=== PATIENT | male | born 1955 | race Caucasian/White ===

== ENCOUNTER 2022-04-23 19:31 | Emergency (ER) | payer OTHER ==
[~2022-04-23] VITALS: Ht 182.9 cm; Wt 84.1 kg
[2022-04-23 20:01] LABS: BASOPHILS # (AUTO) 0.2 X10'3 (0-0.2); EOSINOPHILS # (AUTO) 0.1 X10'3 (0-0.9)
[2022-04-23 20:03] LABS: BASOPHILS % (AUTO) 0.6 % (0-1); EOSINOPHILS % (AUTO) 0.3 % (0-6); HEMATOCRIT 37.8 % (42.0-52.0); HEMOGLOBIN 11.4 g/dl (14.0-17.9); LYMPHOCYTES # (AUTO) 1.4 X10'3 (1.1-4.8); LYMPHOCYTES % (AUTO) 3.7 % (21-51); MEAN CORPUSCULAR HEMOGLOBIN 21.4 PG (27.0-31.0); MEAN CORPUSCULAR HGB CONC 30.3 g/dL (33.0-36.5); MEAN CORPUSCULAR VOLUME 70.8 FL (78-98); MEAN PLATELET VOLUME 7.6 FL (7.4-10.4); MONOCYTES # (AUTO) 1.8 X10'3 (0-0.9); MONOCYTES % (AUTO) 4.7 % (2-12); NEUTROPHILS # (AUTO) 34.7 X10'3 (1.8-7.7); NEUTROPHILS % (AUTO) 90.7 % (42-75); PLATELET COUNT 916 X10'3 (140-440); RED BLOOD COUNT 5.34 X10'6 (4.70-6.10); RED CELL DISTRIBUTION WIDTH 18.8 % (11.5-14.5)
[2022-04-23 20:08] LABS: WHITE BLOOD COUNT 38.3 X10'3 (4.5-11.0)
[2022-04-23] MEDS ORDERED: normal saline 1000ML IV soln IVB ONE (20:15)
[2022-04-23 20:16] LABS: ALANINE AMINOTRANSFERASE 28 U/L (12-78); ALBUMIN 3.3 G/DL (3.4-5.0); ALBUMIN/GLOBULIN RATIO 0.8 (1.1-1.5); ANION GAP 7 (8-16); ASPARTATE AMINO TRANSFERASE 26 U/L (10-37); BILIRUBIN,TOTAL 0.8 MG/DL (0.1-1.0); BLOOD UREA NITROGEN 11 MG/DL (7-18); BUN/CREATININE RATIO 14.9 (5.4-32.0); CALCIUM 8.8 MG/DL (8.5-10.1); CHLORIDE 95 MMOL/L (99-107); CREATININE 0.74 MG/DL (0.60-1.10); GLUCOSE 107 MG/DL (70-104); POTASSIUM 4.3 MMOL/L (3.5-5.1); SODIUM 129 MMOL/L (135-145); TOTAL CARBON DIOXIDE 26.8 MMOL/L (24-32); TOTAL PROTEIN 7.3 G/DL (6.4-8.2); eGFR > 90 ML/MIN
[2022-04-23] MEDS ORDERED: magnesium 2GM in 50ml NS 50 ML IV ONE (20:35)
[2022-04-23 20:50] LABS: LARGE PLATELETS MODERATE; TOTAL CELLS COUNTED 100
[2022-04-23 20:51] LABS: ANISOCYTOSIS 2+; ELLIPTOCYTES 3+; SCHISTOCYTES 1+; TARGET CELLS 1+
[2022-04-23 20:52] LABS: ALKALINE PHOSPHATASE 85 IU/L (46-116); PLATELET ESTIMATE INCREASED
--- NOTE | 2022-04-23 20:57 | NUR ---
mag running over 20min per dr HOYT.
[2022-04-23] MEDS ORDERED: etomidate 2mg/ml inj. IV ONE ×2 (21:40→22:55)
[2022-04-23] MEDS ORDERED: APIX5TAB3 PO (22:18)
[2022-04-23 22:50] VITALS: BP 138/72
== END 2022-04-23 22:57 | disposition home or self-care (01) ==
LOC: ER 19:33
DX: I48.91 Unspecified atrial fibrillation (principal); Z20.822 Contact with and (suspected) exposure to COVID-19; Z79.2 Long term (current) use of antibiotics; Z95.1 Presence of aortocoronary bypass graft
CPT/HCPCS: 36415; 71045; 80053; 83880; 84145; 84484; 85007; 85025; 87635; 93005; 94799; 96365; 96375; 99285; C9803; J3475; J3490; J7030

== ENCOUNTER 2022-06-11 20:45 | Emergency (ER) | payer OTHER ==
[~2022-06-11] VITALS: Ht 182.9 cm; Wt 77.2 kg
[~2022-06-11 20:45] MED LIST: APIX5TAB3 PO
[2022-06-11] MEDS ORDERED: traMADol 50MG tablet PO ONE (22:00)
--- NOTE | 2022-06-11 22:02 | NUR ---
ULTRASOUND PAGED AT [id number]
[2022-06-11] MEDS ORDERED: morphine 4 MG/ML inj SYRINge IV ONE (22:05)
[2022-06-11] MEDS ORDERED: normal saline 1000ML IV soln IVB ONE (22:05)
[2022-06-11 22:25] LABS: EOSINOPHILS # (AUTO) 0.1 X10'3 (0-0.9); EOSINOPHILS % (AUTO) 0.5 % (0-6); RED BLOOD COUNT 5.14 X10'6 (4.70-6.10)
[2022-06-11 22:26] LABS: BASOPHILS # (AUTO) 0.1 X10'3 (0-0.2); BASOPHILS % (AUTO) 0.5 % (0-1); HEMOGLOBIN 11.1 g/dl (14.0-17.9); LYMPHOCYTES # (AUTO) 1.3 X10'3 (1.1-4.8); LYMPHOCYTES % (AUTO) 5.2 % (21-51); MEAN CORPUSCULAR HEMOGLOBIN 21.6 PG (27.0-31.0); MEAN CORPUSCULAR HGB CONC 30.9 g/dL (33.0-36.5); MEAN PLATELET VOLUME 7.6 FL (7.4-10.4); MONOCYTES # (AUTO) 0.9 X10'3 (0-0.9); MONOCYTES % (AUTO) 3.7 % (2-12); NEUTROPHILS # (AUTO) 22.9 X10'3 (1.8-7.7); NEUTROPHILS % (AUTO) 90.1 % (42-75); PLATELET COUNT 904 X10'3 (140-440); RED CELL DISTRIBUTION WIDTH 19.5 % (11.5-14.5)
[2022-06-11 22:32] LABS: WHITE BLOOD COUNT 25.4 X10'3 (4.5-11.0)
[2022-06-11 22:38] LABS: ALANINE AMINOTRANSFERASE 16 U/L (12-78); ALBUMIN 3.1 G/DL (3.4-5.0); ALKALINE PHOSPHATASE 64 IU/L (46-116); ANION GAP 4 (8-16); ASPARTATE AMINO TRANSFERASE 13 U/L (10-37); BILIRUBIN,TOTAL 0.5 MG/DL (0.1-1.0); BLOOD UREA NITROGEN 11 MG/DL (7-18); BUN/CREATININE RATIO 14.5 (5.4-32.0); CHLORIDE 95 MMOL/L (99-107); CREATININE 0.76 MG/DL (0.60-1.10); GLUCOSE 151 MG/DL (70-104); POTASSIUM 3.9 MMOL/L (3.5-5.1); SODIUM 124 MMOL/L (135-145); TOTAL CARBON DIOXIDE 25.3 MMOL/L (24-32); TOTAL PROTEIN 6.3 G/DL (6.4-8.2); eGFR > 90 ML/MIN
[2022-06-11 22:55] LABS: TOTAL CELLS COUNTED 100
[2022-06-11 22:56] LABS: ANISOCYTOSIS 2+; MICROCYTOSIS 1+; PLATELET ESTIMATE INCREASED
[2022-06-11 22:58] LABS: ELLIPTOCYTES 2+; GIANT PLATELET FEW; LARGE PLATELETS MODERATE
[2022-06-11 23:00] LABS: SCHISTOCYTES 1+; TEAR DROP CELLS 1+
[2022-06-11 23:03] LABS: POLYCHROMASIA 1+
[2022-06-11] MEDS ORDERED: HYDR-3972 PO (23:22)
[2022-06-11 23:46] VITALS: BP 135/80
== END 2022-06-11 23:54 | disposition home or self-care (01) ==
LOC: ER 20:46
DX: S76.191A Other specified injury of right quadriceps muscle, fascia and tendon, initial encounter (principal); I51.9 Heart disease, unspecified; Z79.899 Other long term (current) drug therapy; X58.XXXA Exposure to other specified factors, initial encounter; Y93.89 Activity, other specified; Y92.89 Other specified places as the place of occurrence of the external cause; Y99.8 Other external cause status
CPT/HCPCS: 36415; 80053; 85007; 85025; 85610; 96361; 96374; 99284; J2270; J7030

== ENCOUNTER 2022-06-29 18:43 | Emergency (ER) | payer MEDICARE ==
[~2022-06-29] VITALS: Ht 182.9 cm; Wt 78.6 kg
[2022-06-29 19:37] LABS: APTT 37 SECONDS (22-32)
[2022-06-29 19:39] LABS: EOSINOPHILS # (AUTO) 0.2 X10'3 (0-0.9); MONOCYTES # (AUTO) 0.9 X10'3 (0-0.9)
[2022-06-29 19:40] LABS: ALANINE AMINOTRANSFERASE 18 U/L (12-78); ALBUMIN 3.3 G/DL (3.4-5.0); ALBUMIN/GLOBULIN RATIO 0.8 (1.1-1.5); ALKALINE PHOSPHATASE 76 IU/L (46-116); ANION GAP 8 (8-16); ASPARTATE AMINO TRANSFERASE 16 U/L (10-37); BASOPHILS # (AUTO) 0.3 X10'3 (0-0.2); BASOPHILS % (AUTO) 1.2 % (0-1); BILIRUBIN,TOTAL 0.4 MG/DL (0.1-1.0); BLOOD UREA NITROGEN 12 MG/DL (7-18); BUN/CREATININE RATIO 16.4 (5.4-32.0); CALCIUM 8.7 MG/DL (8.5-10.1); CHLORIDE 100 MMOL/L (99-107); CREATININE 0.73 MG/DL (0.60-1.10); EOSINOPHILS % (AUTO) 0.6 % (0-6); GLUCOSE 98 MG/DL (70-104); HEMATOCRIT 33.8 % (42.0-52.0); HEMOGLOBIN 10.7 g/dl (14.0-17.9); LYMPHOCYTES # (AUTO) 1.6 X10'3 (1.1-4.8); LYMPHOCYTES % (AUTO) 5.9 % (21-51); MEAN CORPUSCULAR HEMOGLOBIN 22.3 PG (27.0-31.0); MEAN CORPUSCULAR HGB CONC 31.6 g/dL (33.0-36.5); MEAN CORPUSCULAR VOLUME 70.7 FL (78-98); MEAN PLATELET VOLUME 7.3 FL (7.4-10.4); MONOCYTES % (AUTO) 3.4 % (2-12); NEUTROPHILS # (AUTO) 24.5 X10'3 (1.8-7.7); NEUTROPHILS % (AUTO) 88.9 % (42-75); POTASSIUM 4.7 MMOL/L (3.5-5.1); RED BLOOD COUNT 4.78 X10'6 (4.70-6.10); RED CELL DISTRIBUTION WIDTH 20.2 % (11.5-14.5); SODIUM 135 MMOL/L (135-145); TOTAL CARBON DIOXIDE 27.5 MMOL/L (24-32); TOTAL PROTEIN 7.2 G/DL (6.4-8.2); eGFR > 90 ML/MIN
[2022-06-29 19:50] LABS: PLATELET COUNT 1134 X10'3 (140-440); WHITE BLOOD COUNT 27.6 X10'3 (4.5-11.0)
[2022-06-29 20:16] LABS: MICROCYTOSIS 1+; PLATELET ESTIMATE INCREASED; TOTAL CELLS COUNTED 100
[2022-06-29 20:17] LABS: ANISOCYTOSIS 3+
[2022-06-29 20:18] LABS: HYPOCHROMASIA 1+
[2022-06-29 20:19] LABS: ELLIPTOCYTES 1+; TARGET CELLS 1+; TEAR DROP CELLS 1+
[2022-06-29 20:20] LABS: LARGE PLATELETS MODERATE
[2022-06-30 02:00] VITALS: BP 128/71
[2022-06-30] MEDS ORDERED: colchicine 0.6mg tablet PO ONE (02:55)
[2022-06-30] MEDS ORDERED: COLC0.6T72 PO (02:57)
== END 2022-06-30 03:11 | disposition home or self-care (01) ==
LOC: ER 18:44
DX: D45 Polycythemia vera (principal); G45.9 Transient cerebral ischemic attack, unspecified
CPT/HCPCS: 36415; 70450; 71045; 80053; 84550; 85007; 85025; 85610; 85730; 93005; 99285

== ENCOUNTER 2024-12-17 07:01 | Day surgery (SDC) | payer MEDICARE ==
[2024-12-10 12:24] LABS: EOSINOPHILS % (AUTO) 0.2 % (0-6); LYMPHOCYTES # (AUTO) 0.6 X10'3 (1.1-4.8); LYMPHOCYTES % (AUTO) 12.8 % (21-51); MEAN CORPUSCULAR HEMOGLOBIN 29.6 PG (27.0-31.0); MEAN CORPUSCULAR VOLUME 89.9 FL (78-98); MEAN PLATELET VOLUME 8.1 FL (7.4-10.4); MONOCYTES # (AUTO) 0.1 X10'3 (0-0.9); MONOCYTES % (AUTO) 3.2 % (2-12); NEUTROPHILS # (AUTO) 3.7 X10'3 (1.8-7.7); NEUTROPHILS % (AUTO) 82.8 % (42-75); PRE OP HEMATOCRIT 41.6 % (42.0-52.0); PRE OP HEMOGLOBIN 13.7 g/dL (14.0-17.9); PRE OP PLATELET COUNT 383 X10'3 (140-440); PRE OP WHITE BLOOD COUNT 4.5 10'3 (4.8-10.8); RED BLOOD COUNT 4.63 X10'6 (4.70-6.10); RED CELL DISTRIBUTION WIDTH 22.9 % (11.5-14.5)
[2024-12-10 12:44] LABS: ALBUMIN 3.2 G/DL (3.4-5.0); ALBUMIN/GLOBULIN RATIO 0.8 (1.1-1.5); ALKALINE PHOSPHATASE 62 IU/L (46-116); BLOOD UREA NITROGEN 9 MG/DL (7-18); BUN/CREATININE RATIO 16.4 (10.0-20.0); CALCIUM 8.3 MG/DL (8.5-10.1); CHLORIDE 97 MMOL/L (99-107); CREATININE 0.55 MG/DL (0.60-1.10); PRE OP ALT 20 U/L (30-65); PRE OP ANION GAP 4 (8-16); PRE OP AST 14 U/L (10-37); PRE OP BILIRUB, TOTAL 0.7 MG/DL (0.0-1.0); PRE OP GLUCOSE 83 MG/DL (70-104); PRE OP POTASSIUM 4.5 MMOL/L (3.4-5.1); PRE OP SODIUM 132 MMOL/L (135-145); TOTAL CARBON DIOXIDE 31.1 MMOL/L (24-32); eGFR > 90 ML/MIN
[2024-12-10 13:06] LABS: ANISOCYTOSIS 3+; PLATELET ESTIMATE NORMAL
[2024-12-10 13:07] LABS: MICROCYTOSIS 1+; POIKILOCYTOSIS 2+
[2024-12-10 13:08] LABS: ELLIPTOCYTES 1+
[~2024-12-17] VITALS: Ht 182.9 cm; Wt 76.3 kg
[2024-12-17] VITALS (16 sets, daily range): BP systolic 120–169; BP diastolic 60–90; PULSE 52–81; RESP 12–16; TEMP 98.4; O2SAT 94–100
[2024-12-17] MEDS: ceFAZolin 2gm in dextrose, iso 50 ML IV ONE (05:30)
[~2024-12-17 07:01] MED LIST changes: +DOCUMENT DATE & TIME OF BETA-BLOCKER PO ONE; +HYDR500C2 PO; +SOTA80TA PO
[2024-12-17] MEDS: famotidine 20mg tablet PO ONE (08:05)
[2024-12-17] MEDS: ringers solution, lacted 1,000 ML IV SCH ×2 (08:06→11:24)
[2024-12-17] MEDS ORDERED: morphine 2 MG/ML inj. syringe IV PRN (08:20)
[2024-12-17] MEDS ORDERED: meperidine/PF 25mg/ml syringe IV PRN ×3 (08:20)
[2024-12-17] MEDS ORDERED: enalaprilat 1.25mg/ml 2ml vial IV PRN (08:20)
[2024-12-17] MEDS ORDERED: ondansetron/PF 4mg/2ml inj IV PRN (08:20)
[2024-12-17] MEDS ORDERED: labetalol 20mg/4ml (5mg/ml) syringe IV PRN (08:20)
[2024-12-17] MEDS ORDERED: proCHLORperazine 10 MG/2 ml inj IV PRN (08:20)
[2024-12-17] MEDS ORDERED: fentaNYL/PF 50MCG/1 ML 2ML syringe ONE ×2 (08:24→10:40)
[2024-12-17] MEDS ORDERED: propofol inj 20 ML IV ONE (08:25)
[2024-12-17] MEDS ORDERED: midazolam 1 mg/ML 2ml injection ONE (08:25)
[2024-12-17] MEDS ORDERED: LIDOcaine 2% (20mg/ml) 5ml vial ONE (08:25)
[2024-12-17] MEDS ORDERED: BUPIVAcaine 2.5mg/ml inj 50ml vial (contains preservative) ONE (08:37)
[2024-12-17] MEDS ORDERED: LIDOcaine 1% (10mg/ml)w/preservative inj. 20ml MDV ONE (08:37)
[2024-12-17] MEDS ORDERED: LIDOcaine 1% 30ml preserv. free vial ONE (08:49)
[2024-12-17] MEDS: tamsulosin 0.4mg capsule PO SCH (08:57)
[2024-12-17] MEDS ORDERED: rocuronium 10mg/ml inj IV ONE (09:14)
[2024-12-17] MEDS: BUPIVAcaine/PF 2.5 mg/ml (0.25%) 30ml vial IJ ONE (09:52)
[2024-12-17] MEDS ORDERED: acetaminophen 1,000mg/100ml IV 100 ML IV ONE (10:41)
[2024-12-17] MEDS ORDERED: ondansetron/PF 4mg/2ml inj ONE (10:41)
[2024-12-17] MEDS ORDERED: neostigmine methylsulfate 1 MG/ML 10ml vial ONE (11:00)
[2024-12-17] MEDS ORDERED: glycopyrrolate 0.2mg/ml inj ONE (11:00)
[2024-12-17] MEDS: morphine 4 MG/ML inj SYRINge IV PRN (11:53)
[2024-12-17] MEDS: oxyCODONE/APAP 5-325mg tablet PO PRN (13:26)
[2024-12-17] MEDS ORDERED: tamsulosin 0.4mg capsule PO SCH (21:00)
== END 2024-12-17 14:35 | disposition home or self-care (01) ==
LOC: PAS 07:01
PROVIDERS: ATTEND Surgery
DX: K40.90 Unilateral inguinal hernia, without obstruction or gangrene, not specified as recurrent (principal); K42.9 Umbilical hernia without obstruction or gangrene; I25.2 Old myocardial infarction; K21.9 Gastro-esophageal reflux disease without esophagitis; K41.90 Unilateral femoral hernia, without obstruction or gangrene, not specified as recurrent; K63.89 Other specified diseases of intestine; I48.91 Unspecified atrial fibrillation; Z79.899 Other long term (current) drug therapy; Z88.8 Allergy status to other drugs, medicaments and biological substances; Z98.890 Other specified postprocedural states
CPT/HCPCS: 36415; 49591; 49650; 49659; 80053; 82948; 85025; A4215; A4314; A4615; A4618; C1781; J0131; J0690; J2003; J2250; J2270; J2405; J2704; J2710; J3010; J3490; J7030; J7120; Z7506; Z7508; Z7512; Z7610; 85008